=== PATIENT | male | born 1980 | race Caucasian/White ===

== ENCOUNTER 2020-09-08 20:36 | Inpatient (IN) | payer SELFPAY ==
[2020-09-08 20:41] VITALS: BP 121/81; PULSE 70; RESP 16; TEMP 36.7; O2SAT 98; BMI 25.7
--- NOTE | 2020-09-08 20:50 | W.ED.PSYCH ---
HPI - Psych General: Chief Complaint: Psychiatric Symptoms Stated Complaint: SI Time Seen by Provider: 09/08/20 20:38 Source: patient and EMS Mode of arrival: EMS Limitations: no limitations History of Present Illness: HPI Narrative: 40-year-old male history of depression states he has not been taking his meds for over a month and is having increasing suicidal thoughts. He states that Ambien severe and he feels like he needs to be admitted to the psychiatric [facility]. Patient voluntarily wants to be admitted. He denies any worsening improving factors. Denies any specific plan. Associated symptoms: Reports depression and suicidal ideation Review of Systems Const: Denies: fever(s), chills, body aches or change in appetite Eyes: Denies: blurry vision or eye discomfort ENMT: Denies: throat pain or dental pain Card: Denies: chest pain Resp: Denies: dyspnea GI: Denies: abdominal pain, nausea, vomiting or diarrhea : Denies: dysuria Musc: Denies: neck pain or back pain Skin/Breast: Denies: rash Neuro: Denies: headache(s) Psych: Reports: depression and suicidal ideation Aj/Lymph: Denies: easy bruising All/Imm: Denies: urticaria Physical Exam Const: COMMON NORMALS: no acute distress, patient oriented x3 and healthy appearing HENMT: COMMON NORMALS: normocephalic and atraumatic HEAD & SCALP: normocephalic and atraumatic Eye: COMMON NORMALS: Equal, round and reactive pupils present and EOMs intact bilaterally PUPIL: Yes Equal, round and reactive pupils present Neck/C-Spine: COMMON NORMALS: full ROM and supple Chest: COMMONS NORMALS: normal inspection of the chest and normal palpation of entire chest wall Resp: COMMON NORMALS: normal respiratory effort, No retractions, No use of accessory muscles and clear to auscultation bilaterally AUSCULTATION: clear to auscultation bilaterally Cardio: COMMON NORMALS: regular rate, regular rhythm and No murmurs present (Cardio) RATE: regular rate RHYTHM: regular rhythm GI: COMMON NORMALS: Normal to inspection, nondistended, normoactive bowel sounds present, Soft to palpation, non-tender and no masses PALPATION: Yes Soft to palpation Extremity: COMMON NORMALS: normal to inspection and full ROM Neuro: COMMON NORMALS: patient oriented x3, moves all extremities and no focal motor deficits Psych: COMMON NORMALS: mental status grossly normal, Normal thought process present and cooperative MOOD & AFFECT: Yes depressed mood THOUGHT PROCESS: Normal thought process present THOUGHT CONTENT: Yes Suicidality present Skin: COMMON NORMALS: no rashes or lesions noted and no wounds GENERAL SKIN EXAM: no rashes or lesions noted MDM - Psych MDM Narrative: Medical decision making narrative: Miky presents here with suicidal ideations. He is voluntarily wanting to be admitted and he is medically cleared. I spoke to the psychiatrist and will admit at this time. Lab Data: Labs: Lab Results 09/08/20 09/08/20 09/08/20 Range/Units 20:50 20:50 20:50 WBC 5.4 (4.0-10.0) 10^3/ uL RBC 4.79 (4.1-5.3) 10^6/u L Hgb 14.2 (11.7-16.6) g/dL Hct 44.0 (42.0-52.0) % MCV 91.9 (80-94) fL MCH 29.6 (28.0-34.0) pg MCHC 32.3 (30.0-36.0) g/dL RDW 11.9 L (12.1-15.1) % Plt Count 314 (130-400) 10^3/c mm MPV 8.8 (7.4-10.4) fL Neut % (Auto) 50.7 % Lymph % (Auto) 36.6 % Hoke % (Auto) 10.2 % Eos % (Auto) 1.7 % Baso % (Auto) 0.6 % Neut # (Auto) 2.75 (1.8-7.7) 10^3/u L Lymph # (Auto) 2.0 (0.8-4.8) 10^3/u L Hoke # (Auto) 0.6 (0.2-0.9) 10^3/u L Eos # (Auto) 0.1 (0.0-0.8) 10^3/u L Baso # (Auto) 0.0 (0.0-0.1) 10^3/u L Nucleated RBC % (a uto) 0 % Nucleated RBCs # 0.0 /100WBC PT 13.60 (12.1-14.9) SECO NDS INR 1.01 (0.8-1.2) Sodium 144 (136-145) mmol/L Potassium 3.5 (3.5-5.1) mmol/L Chloride 105 (98-107) mmol/L Carbon Dioxide 32 H (22-29) mmol/L Anion Gap 10.5 (5-19) BUN 19 (6-20) mg/dL Creatinine 0.6 L (0.7-1.2) mg/dL GFR Calculation 147.8 H (90-130) mL/min Glucose 56 L (65-115) mg/dL Calculated Osmolal ity 298 H (285-295) mOsm/k g Calcium 9.3 (8.5-10.5) mg/dL Total Bilirubin 0.2 (0.15-1.2) mg/dL AST 20 (0-40) U/L ALT 20 (0-41) U/L Alkaline Phosphata se 102 (40-130) IU/L Total Protein 7.4 (6.6-8.7) g/dL Albumin 4.1 (3.5-5.2) g/dL Globulin 3.3 (1.3-4.6) g/dL Salicylates < 0.3 L (3-10) mg/dL Acetaminophen < 5.0 L (10-30) ug/mL Ethyl Alcohol < 10 (0-10) mg/dL Discharge Plan Discharge Patient Disposition: Admitted As Inpatient Clinical Impression: Suicidal ideation Condition: Stable Coding Level of Care Code ED Thaw Shed Heater Tender for Gita Fwd Exam Comprehensive
[2020-09-08 21:04] LABS: Basophils % 0.6 %; Eosinophils # 0.1 10^3/uL (0.0-0.8); Eosinophils % 1.7 %; Hemoglobin 14.2 g/dL (11.7-16.6); Lymphocytes % 36.6 %; Mean Corpuscular HGB Conc 32.3 g/dL (30.0-36.0); Mean Corpuscular Hemoglobin 29.6 pg (28.0-34.0); Mean Corpuscular Volume 91.9 fL (80-94); Mean Platelet Volume 8.8 fL (7.4-10.4); Monocytes # 0.6 10^3/uL (0.2-0.9); Monocytes % 10.2 %; Neutrophils # 2.75 10^3/uL (1.8-7.7); Neutrophils % 50.7 %; Nucleated Red Blood Cells % 0 %; Platelet Count 314 10^3/cmm (130-400); Red Blood Count 4.79 10^6/uL (4.1-5.3); Red Cell Distribution Width 11.9 % (12.1-15.1); White Blood Count 5.4 10^3/uL (4.0-10.0)
[2020-09-08 21:09] LABS: INR 1.01 (0.8-1.2)
[2020-09-08 21:18] LABS: Alanine Aminotransferase 20 U/L (0-41); Albumin Level 4.1 g/dL (3.5-5.2); Alkaline Phosphatase 102 IU/L (40-130); Anion Gap 10.5 (5-19); Aspartate Amino Transferase 20 U/L (0-40); Blood Urea Nitrogen 19 mg/dL (6-20); Calcium 9.3 mg/dL (8.5-10.5); Carbon Dioxide 32 mmol/L (22-29); Chloride 105 mmol/L (98-107); Globulin 3.3 g/dL (1.3-4.6); Glomerular Filtration Rate 147.8 mL/min (90-130); Glucose 56 mg/dL (65-115); Osmolality Calculated 298 mOsm/kg (285-295); Potassium 3.5 mmol/L (3.5-5.1); Sodium 144 mmol/L (136-145); Total Bilirubin 0.2 mg/dL (0.15-1.2); Total Protein 7.4 g/dL (6.6-8.7)
[2020-09-08 21:21] LABS: Acetaminophen < 5.0 ug/mL (10-30); Alcohol Level < 10 mg/dL (0-10); Salicylate < 0.3 mg/dL (3-10)
[2020-09-08 21:35] LABS: Amphetamines Screen Urine Negative (Negative); Barbiturates Screen Urine Negative (Negative); Benzodiazepines Screen Urine Negative (Negative); Cocaine Screen Urine Negative (Negative); Opiate Screen Urine Negative (Negative); PCP Screen Urine Negative (Negative); THC Screen Urine Negative (Negative)
[2020-09-08 22:33] VITALS: RESP 16
[2020-09-08 22:38] VITALS: BP 120/73; PULSE 77; RESP 18; TEMP 36.5; O2SAT 97
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
[2020-09-09] MEDS: metoprolol tartrate 25 mg Tablet PO ×3 (01:05→21:41)
[2020-09-09] MEDS: levETIRAcetam 500 mg Tablet PO ×3 (01:06→21:41)
--- NOTE | 2020-09-09 02:04 | PC.NUTR ---
PT STATES, HE IS ZUN[place], HIS CULTURE WILL NOT ALLOW HIM TO EAT POULTRY, OR RED MEAT. PT STATES. HE IS ALLERGIC TO IODINE, WILL NOT EAT TUNA, OR SHELLFISH. PT IS ON CARDIAC DT, LOW SODIUM, DOUBLE PORTION. THANK YOU .
[2020-09-09 06:00] VITALS: BP 86/50; PULSE 60; RESP 18; TEMP 36.2; O2SAT 98
[2020-09-09 06:35] LABS: Glucose Point of Care 92 mg/dL (70-110)
[2020-09-09] MEDS: aspirin 81 mg EC Tablet PO (08:35)
[2020-09-09] MEDS: atorvastatin 40 mg Tablet 20 MG PO (08:35)
[2020-09-09] MEDS: apixaban 5 mg Tablet PO ×2 (08:36→21:41)
[2020-09-09 14:00] VITALS: BP 110/62; PULSE 72; RESP 18; TEMP 36.8; O2SAT 98
[2020-09-09 14:35] LABS: Glucose Point of Care 110 mg/dL (70-110)
[2020-09-09 16:28] LABS: Glucose Point of Care 88 mg/dL (70-110)
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
--- NOTE | 2020-09-09 19:05 | PC.NURSE ---
Patient is agitated and is requesting to leave facility. Physician has spoke to patient at the nurses station and privately. He has called the Police and the Supervisor [employer] Dept. Offered patient medication to help settle nerves and he refuses. CELENA, DANNY
[2020-09-09 20:15] LABS: Glucose Point of Care 95 mg/dL (70-110)
[2020-09-09 22:00] VITALS: BP 116/65; PULSE 82; RESP 18; TEMP 36.4; O2SAT 100
--- NOTE | 2020-09-09 23:43 | PC.NURSE ---
NURSE NTOE: AT APPROXIMATELY 21:40 PM, PT REQUESTED SOMETHING TO HELP HIM REST. THIS NURSE TOOK TRAZADONE 50MG PO, TO PATIENT. PATIENT REFUSED MEDICATION STATING TRAZADONE IS NOT WHAT I TAKE, I TAKE REMERON. ASKED PATIENT AT THIS TIME WHAT DOSE OF REMERON HE NORMALLY TAKES, HE STATED 15MG.
--- NOTE | 2020-09-10 05:53 | PC.NURSE ---
wants to go home Beginning of shift, pt was upset. He is here voluntary and he wanted to leave AMA. Physician stated, he is not ready to go. He does not have a ride home and clothing is not appropriate for weather, it is not a good choice for you to try to walk in this weather at this time of night. Pt became angry and called the police 3 times from the phone in the unit. [place] police dept responded and pt remained in the unit. Pt is upset, made threats to shut the unit down, have the doctors and staff put in residential for holding him against his will. Called the Pediatric Care Coordinator, Pt keeps saying, you don't mess with a vet . Pt was told he had three options: 1. stay the night, get med to go home 2. leave AMA with a ride in the morning 3. Or, be held on 96 hr hold pt complied, stayed on unit without further incident, calm and cooperative with staff.
[2020-09-10 06:00] VITALS: BP 117/72; PULSE 57; RESP 18; TEMP 36.6; O2SAT 97
[2020-09-10 06:33] LABS: Glucose Point of Care 136 mg/dL (70-110)
[2020-09-10] MEDS: mirtazapine 15 mg Tablet PO (09:23)
[2020-09-10] MEDS: fluoxetine 20 mg Capsule 60 MG PO (09:23)
[2020-09-10] MEDS: aspirin 81 mg EC Tablet PO (09:23)
[2020-09-10] MEDS: atorvastatin 40 mg Tablet 20 MG PO (09:23)
[2020-09-10] MEDS: metoprolol tartrate 25 mg Tablet PO (09:27)
[2020-09-10] MEDS: divalproex DR 250 mg Tablet PO ×2 (09:27→13:40)
[2020-09-10] MEDS: levETIRAcetam 500 mg Tablet PO (09:27)
[2020-09-10] MEDS: apixaban 5 mg Tablet PO (09:27)
[2020-09-10] MEDS: paliperidone palmitate 234 mg Syringe IM (09:28)
[2020-09-10 14:14] VITALS: BP 117/72; PULSE 57; RESP 18; TEMP 36.6; O2SAT 97
--- NOTE | 2020-09-10 14:20 | P.DS_ITS ---
Diagnoses at Discharge Discharge Diagnosis (1) Intellectual disability: Status: Acute (2) Traumatic brain injury: Status: Acute (3) Intermittent explosive disorder: Status: Acute (4) Suicidal ideation: Status: Acute (5) Impulse control disorder: Status: Acute Reason for Visit Reason for Visit: SI Hospital Course Hospital Course 40-year-old male with history of traumatic brain injury, intellectual disability, impulse control disorder, intermittent explosive disorder presented to the emergency department requesting voluntary admission for worsening suicidal ideation although he denied any active intent or plan at the time of his evaluation in the emergency department. While the individuals in the emergency department, he requested to leave but at that time was determined to require inpatient admission secondary to concerns about safety of leaving the hospital with plan to walk a significant distance in inclement weather. There were additional concerns about the patient being off of his medication for over a 30-day.. Patient was restarted on Invega Sustenna to 34 mg IM every month during this admission as well as being restarted on his home medications which included medications for his chronic medical conditions. Patient reported quickly reconstituting denying any mood symptoms, denied any depressive symptoms, denied any suicidal ideation. Patient was able to communicate his understanding of the concerns about inclement weather and stated that he had no intentions of walking outside in the cold weather because of the risk of hypothermia. Patient states that he intended to stay with a friend and agreed to psychiatric follow-up post discharge. Patient participated in unit milieu with no reports of any behavioral disturbances. Patient was not suicidal at the time of discharge and did not appear to pose an imminent threat of harm to self or others. Low to moderate risk of harm to self given no current reported psychiatric symptoms or suicidal ideation although patient's risk may be elevated given his history of impulse control disorder as well as history of head injury and history of noncompliance with treatment which may lead to unexpected, impulsive behavior. Risk mitigation included psychiatric hospitalization for observation, restarting psychiatric medications as well as coordinating for safe discharge including psychiatric follow-up in order to further mitigate his risk. Patient was able to communicate his understanding of the need to avoid the use of any substances and alcohol as well as the need for compliance with his medication and psychiatric follow-up in order to further mitigate his risk. Involuntary Hold Information 96 Hour Hold: 96 Hour Involuntary Admission: No Mental Status Exam MSE Comments: Appears stated age, somewhat unkempt thin hair, wearing hospital scrubs, cooperative, good eye contact Psychomotor activity is neither increased nor decreased, no agitation Speech is normal rate and volume, fair articulation, not pressured I feel okay, full range, not labile Alert and oriented to person, place, time, situation Memory and concentration appear to be intact per interview Intellectual functioning appears to be below average based on history, vocabulary, interview Thought process, occasional delays, linear, no flight of ideas, no looseness of associations Thought content, no delusions, no hallucinations, does not appear to be attending to any internal stimuli, no suicidal homicidal ideation Insight and judgment appear to be fair to intact based on patient's communication of his understanding of his condition and need for compliance with his treatment and follow-up care. He also communicated his understanding of the need to utilize appropriate transportation during inclement weather and the potential consequences of cold weather exposure Discharge Data Data Completed and Pending: Labs from last 24 hours 09/10/20 09/09/20 09/09/20 06:11 20:10 16:24 POC Glucose 136 H 95 88 09/08/20 22:13 POC Glucose 110 Vitals: Last Vital Signs Temp 97.8 F 09/10/20 14:14 Pulse 57 L 09/10/20 14:14 Resp 18 09/10/20 14:14 BP 117/72 09/10/20 14:14 Pulse Ox 97 09/10/20 14:14 Discharge Plan Discharge Patient Disposition: Home Condition: Stable Prescriptions: New atorvastatin 40 mg Tablet 20 mg PO DAILY Qty: 30 RF: 0 divalproex 250 mg Tablet,Delayed Release (Dr/Ec) 250 mg PO DAILY@, Qty: 60 RF: 0 levetiracetam 500 mg Tablet 500 mg PO BID@ Qty: 60 RF: 0 aspirin 81 mg Tablet,Delayed Release (Dr/Ec) 81 mg PO DAILY@09 Qty: 30 RF: 0 nitroglycerin 0.4 mg Tablet, Sublingual 0.4 mg sublingual Q5M PRN (Reason: chest pains) Qty: 14 RF: 0 mirtazapine 15 mg Tablet 15 mg PO DAILY Qty: 30 RF: 0 fluoxetine 20 mg Capsule 60 mg PO DAILY@0900 Qty: 30 RF: 0 metoprolol tartrate 25 mg Tablet 25 mg PO BID@0900,0 Qty: 60 RF: 0 Eliquis 5 mg Tablet 5 mg PO BID@0900,2200 Qty: 60 RF: 0 Continued divalproex [Depakote] 250 mg Tablet,Delayed Release (Dr/Ec) 250 mg PO DAILY@,, RF: 0 levetiracetam [Keppra] 500 mg Tablet 500 mg PO BID@ RF: 0 aspirin 81 mg Tablet,Delayed Release (Dr/Ec) 81 mg PO DAILY@0900 RF: 0 nitroglycerin 0.4 mg Tablet, Sublingual 0.4 mg SUBLINGUAL Q5M PRN (Reason: chest pains) RF: 0 metoprolol succinate 25 mg Tablet Extended Release 24 Hr 25 mg PO BID@899,2199 RF: 0 Eliquis 5 mg Tablet 5 mg PO BID@899,2199 RF: 0 Invega Trinza 234 mg IM Q30D RF: 0 Prozac 60 mg PO DAILY@0900 RF: 0 atorvastatin 20 mg PO DAILY RF: 0 mirtazapine [Remeron] 15 mg Tablet 15 mg PO DAILY RF: 0 Discharge Orders: Discharge Order (Routine); Ordered 09/10/20 Ordered By: Silvestre Tipton Referrals: Sherlyn Horne FNP [Nurse Practitioner] - 09/11/20 10:20 am (to establish primary care) Discharge Diet: Regular Discharge Activity: Resume usual activity Patient Instructions: Generalized Anxiety Disorder (DC) Discharge Attestations NPU Time Spent in Discharge Care*: greater than 30 min Status at Discharge: Cognitive status at discharge: mildly impaired cognition , Behavioral status at discharge: cooperative , Functional status at discharge: independent ambulation Overall status at discharge: patient is back to baseline Coding Level of Care Code Acute Feed Mill Lab Technician for Gita Fwd Diagnoses Intellectual disability F79 Traumatic brain injury S06.9X9A Intermittent explosive disorder F63.81 Suicidal ideation R45.851 Impulse control disorder F63.9
== END 2020-09-10 16:06 | disposition home or self-care (01) | DRG 884 ==
LOC: ER 21:46 → NP 21:46
PROVIDERS: Admitting Provider Psychiatry & Neurology Psychiatry; Emergency Provider Emergency Medicine; Visit Provider Psychiatry & Neurology Psychiatry
DX: F79 Unspecified intellectual disabilities (principal); R45.851 Suicidal ideations; F63.81 Intermittent explosive disorder; Z87.820 Personal history of traumatic brain injury; F63.9 Impulse disorder, unspecified; Z79.82 Long term (current) use of aspirin
CPT/HCPCS: 12345; 36416; 80053; 80306; 80307; 82962; 85025; 85610; 96372; 99284

== ENCOUNTER 2020-09-11 13:31 | Emergency (ER) | payer SELFPAY ==
[2020-09-11 13:45] VITALS: BP 103/74; PULSE 78; RESP 18; TEMP 36.4; O2SAT 99; BMI 25.7
--- NOTE | 2020-09-11 13:50 | XR_ITS ---
WS: [id number] Portable AP upright chest, 09/11/2020 Clinical Data: chest pain Comparison: None. Findings: No nodules, masses or effusions are seen. The heart is normal. The pulmonary vascularity is not increased. No pneumonia or pneumothorax is seen. Monitor leads on the chest wall. XR/XR chest 1V portable [id number] Impression: Negative chest.
--- NOTE | 2020-09-11 13:51 | ECG_ITS ---
[facility] Test Date: 2020-09-11 Pat Name: Miky Zelaya Department: Room: Gender: Male Price Clerk: : 1980 Requested By: Aden Kline Order Number: [id number] Lucy MD: Mabel Beatty M.D. Measurements Intervals Vinson Rate: 76 P: 43 HI: 139 QRS: 31 QRSD: 96 T: 40 QT: 366 QTc: 412 Interpretive Statements SINUS RHYTHM WITH FREQUENT VENTRICULAR PREMATURE COMPLEXES ABNORMAL RHYTHM ECG No previous ECG available for comparison Electronically Signed On 09-12-2020 19:17:55 CABIN CLEANING SUPERVISOR by Mabel Beatty M.D. [id number]
[2020-09-11 14:11] VITALS: O2SAT 98
--- NOTE | 2020-09-11 14:18 | PC.NURSE ---
EKG done at 1358 and shown to ER doctor
[2020-09-11 14:19] LABS: Basophils % 0.6 %; Eosinophils # 0.1 10^3/uL (0.0-0.8); Hematocrit 41.9 % (42.0-52.0); Hemoglobin 13.8 g/dL (11.7-16.6); Lymphocytes # 1.4 10^3/uL (0.8-4.8); Mean Corpuscular HGB Conc 32.9 g/dL (30.0-36.0); Mean Corpuscular Hemoglobin 29.4 pg (28.0-34.0); Mean Corpuscular Volume 89.3 fL (80-94); Mean Platelet Volume 9.2 fL (7.4-10.4); Monocytes # 0.4 10^3/uL (0.2-0.9); Monocytes % 8.5 %; Neutrophils # 3.19 10^3/uL (1.8-7.7); Neutrophils % 62.7 %; Nucleated Red Blood Cells % 0 %; Platelet Count 271 10^3/cmm (130-400); Red Blood Count 4.69 10^6/uL (4.1-5.3); Red Cell Distribution Width 12.1 % (12.1-15.1); White Blood Count 5.1 10^3/uL (4.0-10.0)
[2020-09-11 14:32] LABS: Alanine Aminotransferase 16 U/L (0-41); Albumin Level 3.9 g/dL (3.5-5.2); Alkaline Phosphatase 92 IU/L (40-130); Aspartate Amino Transferase 14 U/L (0-40); Blood Urea Nitrogen 17 mg/dL (6-20); Calcium 8.8 mg/dL (8.5-10.5); Carbon Dioxide 29 mmol/L (22-29); Chloride 103 mmol/L (98-107); Globulin 2.9 g/dL (1.3-4.6); Glomerular Filtration Rate 147.8 mL/min (90-130); Glucose 88 mg/dL (65-115); Osmolality Calculated 295 mOsm/kg (285-295); Sodium 142 mmol/L (136-145); Total Bilirubin 0.2 mg/dL (0.15-1.2); Total Protein 6.8 g/dL (6.6-8.7)
[2020-09-11 14:36] LABS: Troponin(5th) Baseline 6 ng/L (0-15)
--- NOTE | 2020-09-11 14:48 | ED_ITS ---
HPI - Chest Pain General: Chief Complaint: Chest Pain Stated Complaint: CHEST PAIN Time Seen by Provider: 09/11/20 13:45 Source: patient History of Present Illness: HPI narrative: Patient with chest pain for approximately 1 hour. Stated it started while walking. Patient does have a history of coronary artery disease. Patient is already taken aspirin prior to arrival. MD complaint: chest pain Prior episodes: Yes Onset: during exertion Pain location: substernal Associated symptoms: Deny abdominal pain, dyspnea, fever(s), nausea, palpitations or vomiting Review of Systems General: Reports: 10 or more systems reviewed and unremarkable except in HPI and below Const: Denies: fever(s) Eyes: Denies: change in vision ENMT: Denies: throat pain Card: Reports: chest pain; Denies: palpitations Resp: Denies: dyspnea GI: Denies: abdominal pain, nausea or vomiting : Denies: flank pain Musc: Denies: neck pain Skin/Breast: Denies: rash Neuro: Denies: headache(s) Physical Exam Const: COMMON NORMALS: no acute distress, average body habitus, patient oriented x3, no limitations, healthy appearing, alert and well nourished HENMT: COMMON NORMALS: normocephalic, atraumatic, hearing grossly normal bilaterally, external ears normal, EAC's normal, TM's normal bilaterally, Normal external nose present, Normal nasal mucous membranes and turbinates present, moist oral mucous membranes, oropharynx normal, dentition normal and gingiva normal HEAD & SCALP: normocephalic and atraumatic NOSE: Normal external nose present and Normal nasal mucous membranes and turbinates present EXTERNAL EAR: Yes external ears normal EXTERNAL AUDITORY CANAL: EAC's normal TYMPANIC MEMBRANE: TM's normal bilaterally Eye: COMMON NORMALS: Equal, round and reactive pupils present, EOMs intact bilaterally, conjunctivae normal, no scleral icterus, no papilledema, normal visual no by confrontation and fundi normal bilaterally CONJUNCTIVA: Yes conjunctivae normal PUPIL: Yes Equal, round and reactive pupils present DIRECT OPHTHALMOSCOPY: Yes no papilledema and Yes fundi normal bilaterally Neck/C-Spine: COMMON NORMALS: no JVD Resp: COMMON NORMALS: normal respiratory effort, No retractions, No use of accessory muscles, clear to auscultation bilaterally and percussion normal AUSCULTATION: clear to auscultation bilaterally PERCUSSION: percussion normal Cardio: COMMON NORMALS: no JVD, regular rate, regular rhythm, S1 normal heart sound present, S2 normal heart sound present, No gallops present (Cardio), No clicks present (Cardio), No murmurs present (Cardio), No rub (Cardio) and Peripheral pulses 2+ throughout RATE: regular rate RHYTHM: regular rhythm HEART SOUNDS: S1 normal heart sound present and S2 normal heart sound present PERIPHERAL PULSES: Peripheral pulses 2+ throughout GI: COMMON NORMALS: Normal to inspection, nondistended, normoactive bowel sounds present, Soft to palpation, non-tender, No hepatosplenomegaly present, no masses and no bruits PALPATION: Yes Soft to palpation and Yes No hepatospl enomegaly present Extremity: COMMON NORMALS: normal to inspection, full ROM, capillary refill normal, no joint enlargement, no clubbing, cyanosis or edema, no calf tenderness and no pedal edema Neuro: COMMON NORMALS: patient oriented x3, CN's II-XII intact bilaterally, moves all extremities, no focal motor deficits, no sensory deficits noted, deep tendon reflexes 2+ bilaterally and gait normal SENSORIUM/ORIENTATION: Yes alert Course Vital Signs: Vital signs: Vital Signs Temperature 97.5 F L 09/11/20 13:45 Pulse Rate 78 09/11/20 15:35 Respiratory Rate 14 09/11/20 15:35 Blood Pressure 95/50 09/11/20 15:35 Pulse Oximetry 100 09/11/20 15:35 MDM - Chest Pain MDM Narrative: Medical decision making narrative: No significant abnormality noted on labs or imaging. Troponin negative. EKG shows only nonspecific ST and T wave changes. Chest x-ray is normal. No indication of PE or dissection or pneumothorax or acute MT or other life-threatening illness at this time. Abel avery is already on Eliquis so I see no reason to evaluate for PE. Patient's pain does not seem consistent with dissection. Discussed with patient that I recommend he stay for a delta troponin. Patient refuses to stay. He insists upon leaving the hospital AGAINST MEDICAL ADVICE. I see no indication to hold patient against as well at this time. Patient appears to be able to be able to make decisions on his own and I have no reason to hold him against his will. Lab Data: Labs: Lab Results 09/11/20 09/11/20 09/11/20 Range/Units 14:05 14:05 14:05 WBC 5.1 (4.0-10.0) 10^3/ uL RBC 4.69 (4.1-5.3) 10^6/u L Hgb 13.8 (11.7-16.6) g/dL Hct 41.9 L (42.0-52.0) % MCV 89.3 (80-94) fL MCH 29.4 (28.0-34.0) pg MCHC 32.9 (30.0-36.0) g/dL RDW 12.1 (12.1-15.1) % Plt Count 271 (130-400) 10^3/c mm MPV 9.2 (7.4-10.4) fL Neut % (Auto) 62.7 % Lymph % (Auto) 27.0 % [place] % (Auto) 8.5 % Eos % (Auto) 1.0 % Baso % (Auto) 0.6 % Neut # (Auto) 3.19 (1.8-7.7) 10^3/u L Lymph # (Auto) 1.4 (0.8-4.8) 10^3/u L [place] # (Auto) 0.4 (0.2-0.9) 10^3/u L Eos # (Auto) 0.1 (0.0-0.8) 10^3/u L Baso # (Auto) 0.0 (0.0-0.1) 10^3/u L Nucleated RBC % (a uto) 0 % Nucleated RBCs # 0.0 /100WBC Sodium 142 (136-145) mmol/L Potassium 4.0 (3.5-5.1) mmol/L Chloride 103 (98-107) mmol/L Carbon Dioxide 29 (22-29) mmol/L Anion Gap 14.0 (5-19) BUN 17 (6-20) mg/dL Creatinine 0.6 L (0.7-1.2) mg/dL GFR Calculation 147.8 H (90-130) mL/min Glucose 88 (65-115) mg/dL Calculated Osmolal ity 295 (285-295) mOsm/k g Calcium 8.8 (8.5-10.5) mg/dL Total Bilirubin 0.2 (0.15-1.2) mg/dL AST 14 (0-40) U/L ALT 16 (0-41) U/L Alkaline Phosphata se 92 (40-130) IU/L Troponin T Baselin e 6 (0-15) ng/L Total Protein 6.8 (6.6-8.7) g/dL Albumin 3.9 (3.5-5.2) g/dL Globulin 2.9 (1.3-4.6) g/dL Discharge Plan Discharge Patient Disposition: Left Against Medical Advice Clinical Impression: Chest pain Condition: Stable Prescriptions: No Action levetiracetam [Keppra] 500 mg Tablet 500 mg PO BID@ RF: 0 aspirin 81 mg Tablet,Delayed Release (Dr/Ec) 81 mg PO DAILY@09 RF: 0 nitroglycerin 0.4 mg Tablet, Sublingual 0.4 mg SUBLINGUAL Q5M PRN (Reason: chest pains) RF: 0 metoprolol succinate 25 mg Tablet Extended Release 24 Hr 25 mg PO BID@0900,2199 RF: 0 Invega Trinza 234 mg IM Q30D RF: 0 Prozac 60 mg PO DAILY@09 RF: 0 mirtazapine [Remeron] 15 mg Tablet 15 mg PO DAILY@2199 RF: 0 divalproex 250 mg Tablet,Delayed Release (Dr/Ec) 250 mg PO DAILY@, Qty: 60 RF: 0 fluoxetine 20 mg Capsule 60 mg PO DAILY@0900 Qty: 30 RF: 0 Eliquis 5 mg Tablet 5 mg PO BID@0900,2200 Qty: 60 RF: 0 atorvastatin 40 mg tablet 20 mg PO DAILY@0900 RF: 0 Patient Instructions: Opioid Safety Coding Level of Care Code ED Tower Cleaner for Gita Fwd Exam Comprehensive
[2020-09-11 15:35] VITALS: BP 95/50; PULSE 78; RESP 14; O2SAT 100
== END 2020-09-11 15:47 | disposition left against medical advice (07) ==
PROVIDERS: Emergency Provider Emergency Medicine
DX: R07.9 Chest pain, unspecified (principal); Z79.01 Long term (current) use of anticoagulants; Z79.82 Long term (current) use of aspirin
CPT/HCPCS: 36415; 71045; 80053; 84484; 85025; 93005; 99283